=== PATIENT | female | born 1965 | race Two or more races ===

== ENCOUNTER 2025-05-13 18:59 | Emergency (ER) | payer MEDICAID, SELFPAY ==
[2025-05-13 19:22] VITALS: BP 124/71; PULSE 61; RESP 20; TEMP 36.7; O2SAT 98
--- NOTE | 2025-05-13 19:46 | XR_ITS ---
Examination: Abdomen sonogram, Limited Date and time of exam: May 13, 2025 2001 hours INDICATIONS: Right upper abdominal pain beginning 2 weeks ago Technique: Real-time graff scale transabdominal sonographic images of the upper abdomen obtained. Findings: Multiple gallstones Gallbladder sludge Gallbladder wall 0.3 cm Common bile duct 0.2 cm Pancreatic head 2.3 cm Liver 10.8 cm no liver lesions Normal hepatopedal portal venous and Patent IVC IMPRESSION: Cholelithiasis, negative for cholecystitis
--- NOTE | 2025-05-13 19:47 | EDNOTE_ITS ---
ED General RME/HPI General Chief complaint: Abdominal Pain Stated complaint: gallstones, nausea, left side abdominal pain Time Seen by Provider: 05/13/25 19:39 Arrival date/time: 05/13/25 18:59 RME / HPI RME / HPI narrative: 60-year-old female with no relevant past medical history comes into the ER due to abdominal pain for the past 2 weeks. Patient was recently seen in the ER at [place] and was diagnosed with cholelithiasis. Patient states that since then her pain has not subsided and has gotten worse. She then mentioned that the pain is localized on the right upper quadrant and epigastric region and she feels like it radiates to her back. Patient states that pain is 8 out of 10 and worsens when she eats. She has also had some nausea and some acid reflux, but no vomiting. Patient denies having any chest pain, blood in the stools, burning sensation urination, headaches, or blurry vision. She did mention that she sometimes get a little bit short of breath due to the pain. Also mentioned having some chills, but denies any fevers. Denies any smoking, drugs, alcohol Related Data Allergies Allergy/AdvReac Type Severity Reaction Status Date / Time No Known Allergies Allergy Verified 05/13/25 19:07 Review of Systems Review of Systems Systems Reviewed: All systems reviewed, normal except as documented Past Medical History Past Medical History Comments PMH COMMENT: PMH: None Allergies: NKDA Social Hx: Denies any smoking, drugs, alcohol ED Exam Narrative Physical exam: Gen: A&O X 3, NAD HEENT: NCAT, EOMI, Pupils reactive JENNIE, not icteric. External ears normal. No rhinorrhea. Moist mucous membranes. Neck: Supple, full range of motion, no observable masses, No meningeal sign. Lungs: No Respiratory distress, clear bilateral. CV: RRR, no murmurs. Abdomen: Soft, nondistended, mildly tender to palpation in RUQ and epigastric region, no sky's sign, No rebound tenderness. MSK: No joint swelling, no redness, peripheral pulses presents, lumbar with no edema. Skin: No rashes, petechiae, lesions. Neuro: No focal neurological deficits appreciated, sensory and motor intact. Psych: Cooperative, appropriate mood and effect. Course Quality Measures none Orders Category Date Time Status US gall bladder Stat Exams 05/13/25 19:46 Completed CBC [CBC] Stat Lab 05/13/25 20:50 Completed CMP [Comprehensive Metabolic Panel] Stat Lab 05/13/25 20:50 Completed Lipase Stat Lab 05/13/25 20:50 Completed HYDROcodone*/APAP 5/325 [Tignall 5/325] Med 05/13/25 19:46 Discontinued 1 tab PO X1 ONE EKG (RT) Stat RT 05/13/25 19:50 Ordered Vital Signs Vital signs: Vital Signs Temperature 98.1 F 05/13/25 19:22 Pulse Rate 61 05/13/25 19:22 Respiratory Rate 20 05/13/25 19:22 Blood Pressure 124/71 05/13/25 19:22 Pulse Oximetry (%) 98 05/13/25 19:22 Oxygen Delivery Method Room Air 05/13/25 19:22 Discharge Plan Plan Patient Disposition: HOME (Self Care) Prescriptions/Referrals Referrals: Mariana Rinaldi MD [Physician] - In 1 week No Primary/Family,Physician [Primary Care Provider] - In 1 week Problem List Clinical Impression: Cholelithiasis Patient/Caregiver Discharge Instructions Other Activity Instructions:: Follow-up primary care physician within 5 days Follow-up with general surgeon Dr. Rinaldi outpatient, for this you will need a referral from your primary care physician. Can take Tylenol every 6 hours as needed for pain for the next 3 days. Come back to the ED if you develop any fevers, nausea, vomiting, worsening abdominal pain, or chills or any worsening symptoms. Saque laurel de seguimiento con peoples doctor primario dentro de 5 silver. Saque laurel de seguimiento con la nic [place] general, para esto necesitara un referido de peoples doctor primario. Puede mary Tylenol cada 6 horas de ser necessario para el dolor por los proximos 3 silver. Vuelva a linwood de emergencia si desarolla fiebre, nausea, vomito, peor dolor abdominla, or escalofrios o empeoramiento ens peoples sintomas. Education Materials: Discharge Instructions for ..., ED Gallstones with Biliary Colic Print Language: American Stand Alone Forms: Shreya Award Info., Patient Portal Info Letter MDM Narrative [facility] hospital course: Patient was seen and evaluated by myself upon arrival to the room. Diagnostic labs and imaging were ordered as well as pain medication. 21:37: Reviewed patient's labs which were unremarkable other than slightly eleva kory alkaline phosphatase is 124 and slight elevated AST at 35. Gallbladder ultrasound that showed cholelithiasis, but no common bile duct dilation and negative for cholecystitis. Spoke with the patient and agrees with plan. Case disclosed with Attending Dr. Jose Ochoa PGY2 Disclaimer: Even though this this note was dictated by speech recognition and even though it was carefully revised there may still be minor errors in medical technologist chief due to voice recognition software. Medication Administration(s) Medication Administration History Discontinued Medications Hydrocodone Bitart/Acetaminophen (Hydrocodone/Apap 5/325 Tablet) 1 tab PO X1 ONE Stop: 05/13/25 19:47 Last Admin: 05/13/25 20:53 Dose: 1 tab Documented By: KATIE
[2025-05-13] MEDS: HYDROcodone/APAP 5/325 TABLET 1 TAB PO (20:53)
[2025-05-13 21:16] LABS: Basophils # (Auto) 0.0 Thou/mm3 (0.0-0.2); Basophils % (Auto) 0 % (0-2.5); Eosinophils # (Auto) 0.1 Thou/mm3 (0.0-0.5); Eosinophils % (Auto) 1 % (0-10); Hematocrit 39.0 % (36.0-46.0); Hemoglobin 13.2 g/dL (12.0-16.0); Immature Granulocytes Auto 0.03 Thou/mm3 (0.00-0.00); Lymphocytes # (Auto) 2.0 Thou/mm3 (1.0-4.8); Lymphocytes % (Auto) 22 % (10-50); Mean Corpuscular HGB Conc 33.8 g/dl (31.0-37.0); Mean Corpuscular Hemoglobin 31.1 pg (25.0-35.0); Mean Corpuscular Volume 92 fL (80-100); Monocytes # (Auto) 0.4 Thou/mm3 (0.0-0.8); Monocytes % (Auto) 5 % (0-12); Neutrophils # (Auto) 6.6 Thou/mm3 (1.8-7.7); Neutrophils % (Auto) 72 % (37-80); Nucleated Red Blood Cell # 0.00 Thou/mm3 (0.00-0.00); Nucleated Red Blood Cell % 0 /100 WBC (0); Platelet Count 429 Thou/mm3 (140-440); RDW Standard Deviation 43.7 fL (36.4-46.3); Red Blood Count 4.25 Miln/mm3 (4.00-5.20); White Blood Count 9.2 Thou/mm3 (3.6-11.0)
[2025-05-13 21:34] LABS: Alanine Aminotransferase 34 U/L (10-49); Albumin, Serum 4.5 gm/dL (3.5-5.0); Albumin/Globulin Ratio 1.6 (1.2-2.2); Alkaline Phosphatase 124 U/L (46-116); Anion Gap 9 (7-16); Aspartate Amino Transferase 35 U/L (0-34); BUN/Creatinine Ratio 14 Ratio (12-20); Bilirubin,Total 0.4 mg/dL (0.3-1.2); Blood Urea Nitrogen 10 mg/dL (9-23); Calcium 9.1 mg/dL (8.3-10.6); Calcium (Corrected) 9.1 mg/dL (8.5-10.1); Carbon Dioxide 27.1 mMol/L (20.0-31.0); Chloride 105 mMol/L (98-107); Creatinine (Component) 0.7 mg/dL (0.6-1.3); Globulin 2.9 gm/dL (2.3-3.5); Glucose 101 mg/dL (74-106); Lipase 45 U/L (12-53); Osmolality,Calculated 280 (275-295); Potassium 3.8 mMol/L (3.4-5.1); Sodium 141 mMol/L (136-145); Total Protein 7.4 gm/dL (5.7-8.2); eGFR > 60 See Note
[2025-05-13 21:55] VITALS: BP 125/73; PULSE 58; RESP 16; TEMP 36.6; O2SAT 98
== END 2025-05-13 22:06 | disposition home or self-care (01) ==
DX: K80.20 Calculus of gallbladder without cholecystitis without obstruction (principal)
CPT/HCPCS: 36415; 76705; 80053; 83690; 85025; 99284; A9270

== ENCOUNTER 2025-05-29 18:20 | Emergency (ER) | payer MEDICAID, SELFPAY ==
[2025-05-29 18:24] VITALS: BMI 21.1
[2025-05-29 18:47] VITALS: BP 112/76; PULSE 114; RESP 18; TEMP 37.3; O2SAT 96
--- NOTE | 2025-05-29 19:02 | EDRME_ITS ---
Rapid Medical Screening Exam [facility] Arrival date/time: 05/29/25 18:20 60F with history of HTN presents to ED with 2 days of sore throat and left flank pain, as well as some N/V. Patient went sent by PCP for ABX and additional evaluation. Patient also had her gallbladder removed about 2 weeks ago. Chief Complaint: Back Pain/Injury Vital signs: Vital Signs Temperature 99.2 F 05/29/25 18:47 Pulse Rate 114 H 05/29/25 18:47 Respiratory Rate 18 05/29/25 18:47 Blood Pressure 112/76 05/29/25 18:47 Pulse Oximetry (%) 96 05/29/25 18:47 Oxygen Delivery Method Room Air 05/29/25 18:47
[2025-05-29] MEDS: ONDANSETRON ODT 4 MG TABRAP PO (19:09)
[2025-05-29 19:26] LABS: Lactate (Lactic Acid) 1.0 mMol/L (0.4-2.0)
[2025-05-29 19:27] LABS: Basophils # (Auto) 0.1 Thou/mm3 (0.0-0.2); Basophils % (Auto) 0 % (0-2.5); Eosinophils # (Auto) 0.0 Thou/mm3 (0.0-0.5); Eosinophils % (Auto) 0 % (0-10); Hematocrit 39.1 % (36.0-46.0); Hemoglobin 13.5 g/dL (12.0-16.0); Immature Granulocytes Auto 0.10 Thou/mm3 (0.00-0.00); Lymphocytes # (Auto) 1.1 Thou/mm3 (1.0-4.8); Lymphocytes % (Auto) 6 % (10-50); Mean Corpuscular HGB Conc 34.5 g/dl (31.0-37.0); Mean Corpuscular Hemoglobin 31.0 pg (25.0-35.0); Mean Corpuscular Volume 90 fL (80-100); Monocytes # (Auto) 0.6 Thou/mm3 (0.0-0.8); Monocytes % (Auto) 3 % (0-12); Neutrophils # (Auto) 16.4 Thou/mm3 (1.8-7.7); Neutrophils % (Auto) 90 % (37-80); Nucleated Red Blood Cell # 0.00 Thou/mm3 (0.00-0.00); Nucleated Red Blood Cell % 0 /100 WBC (0); Platelet Count 292 Thou/mm3 (140-440); RDW Standard Deviation 44.2 fL (36.4-46.3); Red Blood Count 4.36 Miln/mm3 (4.00-5.20); White Blood Count 18.2 Thou/mm3 (3.6-11.0)
[2025-05-29 19:28] LABS: Collection Type, Urine Clean Catch
[2025-05-29 19:53] LABS: Bilirubin,Urine Negative (Negative); Blood,Urine 1+ (Negative); Clarity,Urine Clear (Clear/Hazy); Color,Urine Yellow (Lt Yel-Yel); Culture Indicated,Urine Not Indicated; Glucose, Urine Negative (Negative); Hyaline Casts,Urine < 1 /hpf (0-1); Ketones,Urine 2+ (Negative); Leukocyte Esterase,Urine Positive (Negative); Nitrite,Urine Negative (Negative); PH,Urine 6.0 (5.0-7.0); Protein,Urine 1+ (Neg - Trace); RBC,Urine 10 /hpf (0-3); Specific Gravity,Urine 1.029 (1.001-1.035); Squamous Epithelial Cell,Urine 1 /hpf (0-5); Urobilinogen,Urine 4.0 mg/dL (0.0-1.0); WBC,Urine 6 /hpf (0-5)
[2025-05-29 19:58] LABS: Alanine Aminotransferase 50 U/L (10-49); Albumin, Serum 4.7 gm/dL (3.5-5.0); Albumin/Globulin Ratio 1.6 (1.2-2.2); Alkaline Phosphatase 133 U/L (46-116); Anion Gap 11 (7-16); Aspartate Amino Transferase 35 U/L (0-34); BUN/Creatinine Ratio 11 Ratio (12-20); Bilirubin,Total 0.8 mg/dL (0.3-1.2); Blood Urea Nitrogen 8 mg/dL (9-23); Calcium 10.2 mg/dL (8.3-10.6); Calcium (Corrected) 10.2 mg/dL (8.5-10.1); Carbon Dioxide 23.4 mMol/L (20.0-31.0); Chloride 103 mMol/L (98-107); Creatinine (Component) 0.7 mg/dL (0.6-1.3); Estimated Creatinine Clearance 52.7 mL/min (>60); Globulin 2.9 gm/dL (2.3-3.5); Glucose 126 mg/dL (74-106); Osmolality,Calculated 274 (275-295); Potassium 3.5 mMol/L (3.4-5.1); Procalcitonin 0.08 ng/ml (0.0-0.49); Sodium 137 mMol/L (136-145); Total Protein 7.6 gm/dL (5.7-8.2); eGFR > 60 See Note
[2025-05-29 20:10] LABS: Strep A Rapid Positive (Negative)
[2025-05-29 21:16] VITALS: BP 112/76; PULSE 102; RESP 18; TEMP 37.3; O2SAT 98
--- NOTE | 2025-05-29 21:22 | EDNOTE_ITS ---
ED Back Injury Pain RME/HPI General Chief Complaint: Back Pain/Injury Stated Complaint: BACK PAIN, SORE THROAT, HEADACHE, FEVER Arrival date/time: 05/29/25 18:20 RME / HPI RME / HPI Narrative: 05/29/25 18:20 60F with history of HTN presents to ED with 2 days of sore throat and left flank pain, as well as some N/V. Patient went sent by PCP for ABX and additional evaluation. Patient also had her gallbladder removed about [address] Deleon?s Main ED Evaluation: 60yo female who is s/p cholecystectomy 2 weeks [employer] now presenting with sore throat, headache, and recent onset fever over the last 24-48 hours. Notes multiple bouts of nonbloody emesis [employer]. Notes recent onset of frequency and urgency of urination. Complains primarily of R>L flank pain. PMH includes DM, HTN, HLD; no known heart disease or history of CVA. PSH includes cholecystectomy. No alcohol or tobacco use. Related Data Home Medications ?Medication ?Instructions ?Recorded ?Confirmed losartan 100 mg tablet 100 mg PO QDAY 05/16/2505/03 Previous Rx's ?Medication ?Instructions ?Recorded acetaminophen 120 mg-codeine 12 5 ml PO Q8H PRN pain # 120 mL 05/30/25 mg/5 mL oral solution cephalexin 250 mg/5 mL oral 500 mg (10 mL) PO TID #300 mL 05/30/25 suspension Allergies Allergy/AdvReac Type Severity Reaction Status Date / Time No Known Allergies Allergy Verified 05/29/25 18:28 Review of Systems Review of Systems Systems Reviewed: All systems reviewed, normal except as documented Past Medical History Past Medical History NEUROLOGIC: Negative Neurological Disorders or Seizures CARDIAC: Positive Hypercholesterolemia; Negative Cardiac Disorders or Congestive Heart Failure RESPIRATORY: Negative Chronic Obstructive Pulmonary Disease (COPD) GASTROINTESTINAL: Positive Gastrointestinal Disorders and Gall Bladder Disease; Negative Hepatitis GENITOURINARY: Negative Genitourinary Disorders or Renal Disease REPRODUCTIVE: Positive Previous Pregnancies MUSCULOSKELETAL: Positive Musculoskeletal Disorders and Arthritis ENDOCRINE: Negative Endocrine Disorders, Diabetes Mellitus Type 1 or Diabetes Mellitus Type 2 HEMATOLOGIC: Negative Blood Disorders OTHER HISTORY: Negative Autoimmune Disease, Blood Transfusions, Anesthesia Reactions, Human Immunodeficiency Virus (HIV), Chicken Pox, Measles, Mumps, Rubella (Romansh Measles), Pertussis or Clostridium Difficile Family History FAMILY HISTORY: Negative Family Psychiatric Problems, Family Respiratory Disorders, Family Cardiac Disorders, Family Gastrointestinal Problems, Family Cancer, Family Surgery or Family Anesthesia Reaction Surgical History SURGICAL: Positive Tubal Ligation Social History SMOKING STATUS: Never smoker ED Exam Narrative Physical exam: GENERAL APPEARANCE: alert and oriented x 4, notably tachycardic and febrile, nontoxic, no acute distress VITALS: All vitals were reviewed and the pulse ox is 98% on room air, which is normal according to my interpretation. HEENT: Normocephalic, atraumatic; pupils equal, round, reactive to light; EOMI; mucous membranes pink, moist; 2+ exudate right peritonsillar region, tolerating secretions, no asymmetry NECK: Supple LUNGS: CTABL; no wheezes, no rales, no rhonchi HEART: Tachycardic, regular rhythm; normal S1, S2; no murmurs ABDOMEN: non distended; soft, noted suprapubic and right flank tenderness; no peritoneal findings EXTREMITIES: atraumatic; no edema NEUROLOGIC: awake; alert and oriented x4; cranial nerves II-XII grossly intact; no focal sensory or motor deficits PSYCHIATRIC: appropriate mood and affect SKIN: warm, dry, normal color; no rashes Course Course Course Narrative: 2124: Sepsis alert initiated. Orders made at this time are congruent with ED Adult Sepsis Order List. Re-evaluation is to be completed. 2347: NS IVF infused. 0017: Sepsis reassessment performed consisting of lab review, vitals, physical exam including auscultation of heart, lungs, and visual evaluation of capillary refills, mucosal membranes and extremities. Quality Measures Current suspected stage: ruled out Possible source: other (strep pharyngitis) Blood cultures ordered: yes Antibiotic ordered: Yes Pertinent labs: 05/29/25 19:10 Lactic Acid 1.0 mMol/L (0.4-2.0) Procalcitonin 0.08 ng/ml (0.0-0.49) sepsis Orders Category Date Time Status Bedside COVID-19 Antigen Test NOW Care 05/29/25 18:34 Active Bedside Influenza A&B Antigen Test NOW Care 05/29/25 18:[address] Screening NOW Care 05/29/25 22:[address] abdomen pelvis w con Stat Exams 05/29/25 22:07 Completed Blood Culture (Lab) Stat Lab 05/29/25 21:48 Received CBC Stat Lab 05/29/25 19:10 Completed CMP [Comprehensive Metabolic Panel] Stat Lab 05/29/25 19:10 Completed Lactate (Lactic Acid) Stat Lab 05/29/25 19:10 Completed Procalcitonin Stat Lab 05/29/25 19:10 Completed Strep A Rapid Stat Lab 05/29/25 19:20 Completed Urinalysis, C/S if Indicated Stat Lab 05/29/25 19:20 Completed Acetaminophen Tab [Tylenol ES Tab] Med 05/29/25 22:30 Discontinued 1,000 mg PO X1 ONE Ondansetron Odt [Zofran Odt] Med 05/29/25 19:02 Discontinued 4 mg PO X1 ONE Piper/Tazo 3.375 gm Premix [Zosyn] Med 05/29/25 22:00 Active 3.375 g in 50 ml IV Q8HR Sodium Chloride 0.9% 1000 ml [Ns] 1,000 ml Med 05/29/25 21:48 Discontinued IV 999 mls/hr Sodium Chloride 0.9% 500 ml [Ns] 500 ml Med 05/29/25 21:48 Discontinued IV 500 mls/hr Vancomycin Inj 1,000 mg Med 05/29/25 22:00 Discontinued Sodium Chloride 0.9% 250 ml [Ns] 250 ml IV X1 Vancomycin Pharmacy to Dose Med 05/30/25 09:00 Pending 1 each IV QDAY Vital Signs Vital signs: Vital Signs Temperature 99.2 F 05/29/25 18:47 Pulse Rate 114 H 05/29/25 18:47 Respiratory Rate 18 05/29/25 18:47 Blood Pressure 112/76 05/29/25 18:47 Pulse Oximetry (%) 96 05/29/25 18:47 Oxygen Delivery Method Room Air 05/29/25 18:47 Back Pain / Injury MDM Narrative MDM Narrative:: Scribe Attestation: 05/29/25 - Rekha Lizama am scribing for and in the presence of Dr. Deleon. 60yo female who is s/p cholecystectomy 2 weeks [employer] now presenting with sore throat, headache, and recent onset fever over the last 24-48 hours. Notes multiple bouts of nonbloody emesis [employer]. Please see PE findings. Lab markers demonstrate markedly elevated WBC count of 18k with left shift noted, but no bandemia. Chemistries show mildly elevated blood sugar of 126. UA shows equivocal UTI along with dehydration. Group A Strep positive. Patient placed on cushion builder, enrolled in sepsis protocol, and after appropriate cultures were obtained, dual IV antibiotics were administered. Also administered antipyretics with normalization of temperature. Gallbladder ultrasound performed and demonstrated cholelithiasis. CT abdomen pelvis obtained and without acute process. Patient hydrated aggressively according to protocol and received dual IV antibiotics. Patient remained otherwise stable, nontoxic in appearance, and considered stable for discharge. Will treat with Keflex for both pharyngitis and UTI. Recommend Tylenol PRN for fever, clear liquid diet, and follow-up with PMD for reassessment in 7-10 days. Patient data External records reviewed:: [facility] previous records (Per chart review, patient was seen here on 05/13/25 for cholelithiasis.) Clinical information provided by:: patient Social determinants that could affect healthcare access:: none Patient has the following chronic illnesses:: none How is presenting disease/condition affected by chronic disease/condition?: no chronic disease Evaluation data The following diagnostics were reviewed and interpreted by me:: lab results and radiology exam(s) Lab and/or radiology exams considered but not ordered:: none Interpretation Summary: [facility] Report Signed Patient: ANALISA SINGLETON Record#: [id number] Birthdate: 1965 Age/Sex: 60 / F Location: [facility] Attending Dr: Ordering Physician: Meet Garcia DO Date of Service: 05/29/25 Procedure(s): CT abdomen pelvis w con Accession Number(s): [id number] cc: Meet Garcia DO; Jorge Marcus MD; Mitzi Raymond Examination: CT abdomen with intravenous contrast CT pelvis with intravenous contrast 2-D coronal reconstructions 2-D sagittal reconstructions Date and time of exam:May 29, 2025 11:24 PM INDICATIONS: Headaches fever flank pain today. CTDI: vol (mGy) 5.01 DLP: (mGycm) 234 Technique: Multiple axial sections of the abdomen and pelvis have been obtained. 64 slice high-resolution scanner used. 3 mm axial sections have been obtained, post intravenous injection 60 cc [id number] 2-D sagittal, coronal reconstructions obtained. Low dose protocols were performed. One or more of the following dose reduction techniques were used; automated exposure control, adjustment of the mA and/or KV according to patient size, use of iterative reconstruction technique. Findings: No focal liver or splenic lesions No gallstones. No pancreatic or adrenal mass. No renal or ureteral calculi, no hydronephrosis Aorta calcification no aneurysmal dilatation Normal appendix No bowel obstruction Anteverted uterus, 20 mm right adnexal cyst Urinary bladder intact IMPRESSION: No renal or ureteral calculi, no hydronephrosis Normal appendix No bowel obstruction diverticulitis or free air 20 mm right adnexal cyst Dictated By: Jorge Marcus MD Signed By: <Electronically signed by Jorge Marcus MD in OV> 05/29/25 9711 Medications / Prescriptions Medications or Prescriptions considered but not ordered:: none Medication administrations:: Medication Administration History Piperacillin/Tazobactam/Dextrose (Zosyn) 3.375 g in 50 mls @ 100 mls/hr IV Q8HR TEZ Stop: 06/05/25 21:59 Last Infusion: 05/29/25 23:23 Dose: Infused Documented By: Admin: 05/29/25 22:42 Dose: 100 mls/hr Documented By: JOHNNY Pharmacy Consult (Vancomycin Pharmacy To Dose 1 Each Each) 1 each IV QDAY TEZ Stop: 06/29/25 08:59 Discontinued Medications Acetaminophen (Acetaminophen 500 Mg Tablet) 1,000 mg PO X1 ONE Stop: 05/29/25 22:31 Last Admin: 05/29/25 22:41 Dose: 1,000 mg Documented By: JOHNNY Sodium Chloride (Ns) 1,000 mls @ 999 mls/hr IV .Q1H1M ONE Stop: 05/29/25 22:48 Last Infusion: 05/29/25 23:47 Dose: Infused Documented By: Admin: 05/29/25 22:42 Dose: 999 mls/hr Documented By: JOHNNY Sodium Chloride (Ns) 500 mls @ 500 mls/hr IV .Q1H ONE Stop: 05/29/25 22:47 Last Infusion: 05/29/25 23:47 Dose: Infused Documented By: Admin: 05/29/25 22:42 Dose: 500 mls/hr Documented By: JOHNNY Vancomycin HCl 1,000 mg/ (Sodium Chloride) 250 mls @ 150 mls/hr IV X1 ONE Stop: 05/29/25 23:39 Last Infusion: 05/30/25 01:28 Dose: Infused Documented By: Admin: 05/29/25 23:45 Dose: 150 mls/hr Documented By: JOHNNY Ondansetron HCl (Ondansetron Odt 4 Mg Tabrap) 4 mg PO X1 ONE; Protocol Stop: 05/29/25 19:03 Last Admin: 05/29/25 19:09 Dose: 4 mg Documented By: MARII see above Consultations Consultation(s) initiated? (list below): No Diagnosis Differential diagnosis back pain/injury: other (COVID, Influenza, pneumonia, Strep, URI, UTI) Most likely diagnosis given after review of the tests above:: see clinical impression below Admission Indicated Admission indicated?: not indicated Admission Request Was there a request for admission?: No Disposition Plan Disposition Plan: Discharge Discharge Attestation Discharge Attestation: The patient and all family members were given an opportunity to ask questions and understood the discharge instructions. Discharge instructions specifically effects, indications for sooner follow up or return to the emergency department, and the expected course of current diagnosis. Patient condition: Stable Critical Care Time Critical Care Time Critical Care Time: Yes Total Critical Care Time (min.): 40 Attestation: The high probability of sudden, clinically significant deterioration in the patient?s condition required the highest level of my preparedness to intervene urgently. The services I provided to this patient were to treat and/or prevent clinically significant deterioration. Services included the following: chart data review, reviewing nursing notes and/or old charts, documentation time, networks computer consultant collaboration regarding findings and treatment options, medication orders and management, direct patient care, vital sign assessments and ordering, interpreting and reviewing diagnostic studies and lab tests. Aggregate critical care time includes only time during which I was engaged in work directly related to the patient?s care, as described above, whether at bedside or elsewhere in the Emergency Department. It did not include time spent performing other reported procedures or the services of residents, students, nurses or physician assistants. Discharge Plan Plan Patient Disposition: HOME (Self Care) Prescriptions/Referrals Prescriptions/Med Rec: New cephalexin 250 mg/5 mL suspension for reconstitution 500 mg PO TID Qty: 300 0RF acetaminophen-codeine 120-12 mg/5 mL solution 5 ml PO Q8H PRN (Reason: pain) Qty: 120 0RF No Action losartan 100 mg tablet 100 mg PO QDAY Patient Comments: Pt is only taking the med when she has a headache Referrals: Radha Raymond [Primary Care Provider] - In 1 week Problem List Clinical Impression: Acute febrile illness, Acute streptococcal pharyngitis, UTI (urinary tract infection) Patient/Caregiver Discharge Instructions Discharge Activity: activity as tolerated Diet Instructions: Reports/medication as directed/follow-up primary care doctor in 5 to 7 days return if worsening. Education Materials: ED Pharyngitis, Strep (Confirmed), ED CYSTITIS Female Adult Additional Instructions: Force fluids/medications as directed/follow-up with primary care in 5 to 7 days return if worsening Print Language: Senegalese Stand Alone Forms: Shreya Award Info., Patient Portal Info Letter
[2025-05-29 21:26] VITALS: BP 112/76; PULSE 102; RESP 22; TEMP 38.4; O2SAT 98
--- NOTE | 2025-05-29 21:29 | PC.NURSE ---
PT BIB FOR WORSEING BACK PAIN AND ABDOMINAL PAIN. PT HAD HER GALLBLADDER REMOVED LAST WEEK. PT NOW PRESENTS TO ED FOR WORSEING PAIN. PT STATES THAT SHES BEEN NAUSOUS AND HAD ONE VOMITING EPISODE. PT REPORTS SHE HAD A FEVER. RECTAL TEMP OBTAINED BY THIS RN.
--- NOTE | 2025-05-29 22:07 | XR_ITS ---
Examination: CT abdomen with intravenous contrast CT pelvis with intravenous contrast 2-D coronal reconstructions 2-D sagittal reconstructions Date and time of exam:May 29, 2025 11:24 PM INDICATIONS: Headaches fever flank pain today. CTDI: vol (mGy) 5.01 DLP: (mGycm) 234 Technique: Multiple axial sections of the abdomen and pelvis have been obtained. 64 slice high-resolution scanner used. 3 mm axial sections have been obtained, post intravenous injection 60 cc [id number] 2-D sagittal, coronal reconstructions obtained. Low dose protocols were performed. One or more of the following dose reduction techniques were used; automated exposure control, adjustment of the mA and/or KV according to patient size, use of iterative reconstruction technique. Findings: No focal liver or splenic lesions No gallstones. No pancreatic or adrenal mass. No renal or ureteral calculi, no hydronephrosis Aorta calcification no aneurysmal dilatation Normal appendix No bowel obstruction Anteverted uterus, 20 mm right adnexal cyst Urinary bladder intact IMPRESSION: No renal or ureteral calculi, no hydronephrosis Normal appendix No bowel obstruction diverticulitis or free air 20 mm right adnexal cyst
[2025-05-29 22:41] VITALS: TEMP 38.4
[2025-05-29] MEDS: ACETAMINOPHEN 500 MG TABLET 1000 MG PO (22:41)
[2025-05-29] MEDS: SODIUM CHLORIDE 0.9% 500 ML 500 ML IV (22:42)
[2025-05-29] MEDS: PIPER/TAZO 3.375 GM PREMIX 3.375 G/50 ML BAG IV (22:42)
[2025-05-29] MEDS: SODIUM CHLORIDE 0.9% 1000 ML 1,000 ML 999 ML IV (22:42)
[2025-05-29] MEDS: Vancomycin Inj 1,000 MG in SODIUM CHLORIDE 0.9% 250 ML 250 ML 150 MG IV (23:45)
[2025-05-29 23:48] VITALS: TEMP 36.5
[2025-05-30 01:00] VITALS: BP 90/50; PULSE 102; RESP 20; O2SAT 98
[2025-05-30 01:36] VITALS: BP 103/60; PULSE 75; RESP 18; TEMP 36.9; O2SAT 96
[2025-05-30 02:34] VITALS: BP 110/58; PULSE 60; RESP 18; TEMP 36.9; O2SAT 98
== END 2025-05-30 02:49 | disposition home or self-care (01) ==
PROVIDERS: Physician Assistant; Emergency Provider Emergency Medicine
DX: J02.0 Streptococcal pharyngitis (principal); N39.0 Urinary tract infection, site not specified; N83.8 Other noninflammatory disorders of ovary, fallopian tube and broad ligament
CPT/HCPCS: 36415; 74177; 80053; 81001; 83605; 84145; 85025; 87040; 87400; 87651; 87811; 96365; 96366; 99283; A4649; J2543; J3373; J7030; J7050; J7999; Q0162; Q9967; A9270